=== PATIENT | female | born 1975 | race Caucasian/White ===

== ENCOUNTER 2017-01-13 13:38 | Emergency (ER) | payer OTHER ==
--- NOTE | 2017-01-13 15:57 | ER Document Report ---
ED Extremity Problem, Lower - General Chief Complaint: Knee Pain Stated Complaint: LEFT SIDE PAIN Time Seen by Provider: 01/13/17 15:57 Mode of Arrival: Ambulatory Information source: Patient Notes: 41 yo female with hx MS for 18 years states she is having flare for 3 weeks with the symptoms of weakness to left lower leg, has to consciously think about using the left leg or she will trip and fall. No appliance used. Pt of dr. manoj Diana [facility] Internal Medicine. Patient takes sq Ribif M-W-F at home. TRAVEL OUTSIDE OF THE [place] IN LAST 30 DAYS: No - Related Data Allergies/Adverse Reactions: Sulfa (Sulfonamide Antibiotics) Allergy (Verified 01/13/17 13:47) Past Medical History - General Information source: Patient - Social History Smoking Status: Never Smoker Chew tobacco use (# tins/day): No Frequency of alcohol use: None Drug Abuse: None Lives with: Spouse/Significant other Family History: Reviewed & Not Pertinent Patient has suicidal ideation: No Patient has homicidal ideation: No - Medical History Notes: multiple sclerosis for 18 years - Past Medical History Cardiac Medical History: Reports: Hx Hypertension Renal/ Medical History: Denies: Hx Peritoneal Dialysis Surgical Hx: Negative - Immunizations Hx Diphtheria, Pertussis, Tetanus Vaccination: Yes Review of Systems - Review of Systems Constitutional: No symptoms reported EENT: No symptoms reported Cardiovascular: No symptoms reported Respiratory: No symptoms reported Gastrointestinal: No symptoms reported Genitourinary: No symptoms reported Female Genitourinary: No symptoms reported Musculoskeletal: No symptoms reported Skin: No symptoms reported Hematologic/Lymphatic: No symptoms reported Neurological/Psychological: See HPI Physical Exam - Vital signs Vitals: Temp Pulse Resp BP Pulse Ox 98.3 F 76 18 153/76 H 98 01/13/17 13:45 01/13/17 13:45 01/13/17 13:45 01/13/17 13:45 01/13/17 13:45 Interpretation: Normal - General General appearance: Appears well, Alert - HEENT Head: Normocephalic, Atraumatic Eyes: Normal Pupils: PERRL Neck: Supple - Respiratory Respiratory status: No respiratory distress Chest status: Nontender Breath sounds: Normal Chest palpation: Normal - Cardiovascular Rhythm: Regular Heart sounds: Normal auscultation Murmur: No - Abdominal Inspection: Normal Distension: No distension Bowel sounds: Normal Tenderness: Nontender Organomegaly: No organomegaly - Back Back: Normal, Nontender - Extremities General upper extremity: Normal inspection, Nontender, Normal color, Normal ROM , Normal temperature General lower extremity: Normal inspection, Nontender, Normal color, Normal ROM , Normal temperature, Normal weight bearing. No: Belkis's sign Notes: 5 + strength to grace legs, no foot drop, n/v intact bilateral - Neurological Neuro grossly intact: Yes Cognition: Normal Orientation: AAOx4 Hinton Coma Scale Eye Opening: Spontaneous Hinton Coma Scale Verbal: Oriented Ashly Coma Scale Motor: Obeys Commands Ashly Coma Scale Total: 15 Speech: Normal Motor strength normal: LUE, RUE, LLE, RLE Sensory: Normal - Psychological Associated symptoms: Normal affect, Normal mood - Skin Skin Temperature: Warm Skin Moisture: Dry Skin Color: Normal Skin irregularity: negative: Rash Course - Re-evaluation Re-evalutation: 01/13/17 16:[address] Mayorga [facility] [phone] and he recommends getting an MRI combo of the brain to look for any new active lesions. He also agrees with 1000 mg of Solu-Medrol daily for 3 days. Patient will follow up on Monday. 01/13/17 16:34 01/13/17 20:01 MRI shows some new demyelinization although he was unable to compare it to any previous MRI I will give a copy of this interpretation and a CD to the patient. - Vital Signs Vital signs: Temp Pulse Resp BP Pulse Ox 98.3 F 76 18 153/76 H 98 01/13/17 13:45 01/13/17 13:45 01/13/17 13:45 01/13/17 13:45 01/13/17 13:45 - Laboratory Result Diagrams: 01/13/17 17:30 Laboratory results interpreted by me: 01/13/17 17:30 BUN 6 L Creatinine 0.51 L Discharge - Discharge Clinical Impression: MS exacerbation Condition: Good Disposition: HOME, SELF-CARE Instructions: Neuropathy ([facility]) Additional Instructions: You have been treated for multiple sclerosis exacerbation with 1000 mg of Solu- Medrol today. dr. Mayorga your neurologist says that you can return to the ER this weekend for doses on monday and monday here in the ER, you have been set up as a "Nurse Visit". call dr. Mayorga office monday morning for follow up appt on monday When you come to the ER monday and monday afternoon, tell the front office manager in the waiting room that you are here for a "Nurse Visit" and you don't need to check in as an ER patient. Please complete the patient satisfaction survey if you get one, and return it.. If you do not receive a survey, then you can go to the [facility] website, [email or web address] and place your comments about your very good care. Thank you very much. It was a pleasure being your medical provider today. Forms: Elevated Blood Pressure Referrals: HUGO XIONG MD [Primary Care Provider] - Follow up as needed
[2017-01-13] MEDS ORDERED: METHYLPREDNISOLONE INJ 1000 MG VIAL IV ONE (16:31)
[2017-01-13 18:31] LABS: ANION GAP 6 (5-19); BLOOD UREA NITROGEN 6 mg/dL (7-20); CALCIUM 9.5 mg/dL (8.4-10.2); CARBON DIOXIDE 30 mmol/L (22-30); CHLORIDE 106 mmol/L (98-107); CREATININE RESULT 0.51 mg/dL (0.52-1.25); GLUCOSE 83 mg/dL (75-110); POTASSIUM 4.6 mmol/L (3.6-5.0); SODIUM 141.9 mmol/L (137-145)
--- NOTE | 2017-01-13 19:35 | RADIOLOGY REPORT (SQ) ---
EXAM DESCRIPTION: MRI HEAD COMBO COMPLETED DATE/TIME: 01/13/2017 7:20 pm REASON FOR STUDY: MS ? new lesions COMPARISON: None. TECHNIQUE: Multiplanar imaging includes noncontrasted T1, T2, FLAIR, diffusion with ADC map and post gadolinium contrast T1 sequences. Images stored on PACS. CONTRAST TYPE AND DOSE: 10 mL Multihance. RENAL FUNCTION: GFR > 60. LIMITATIONS: None. FINDINGS: ANATOMY: No anomalies. Normal vascular flow voids. Pituitary fossa normal. CSF SPACES: Normal in size and contour. No hemorrhage. CEREBRUM: Sulci and gyri normal in size and contour. Numerous scattered hyperintense FLAIR foci incl uding involvement of the subcortical and periventricular white matter with a distribution and morphol ogic Cook appearance characteristic of multiple sclerosis consistent with patient's clinical history. Some of the lesions appear to demonstrate at least mild enhancement following contrast administrati on suggestive of active demyelination best seen on series 10, image 16 and series 10, image 19. No ev idence of hemorrhage, mass, or extraaxial fluid collection. POSTERIOR FOSSA: No signal alteration. No hemorrhage. No edema, masses, or mass effect. Internal sheba tory canals, cerebellopontine angles, mastoids normal. No enhancing lesions. No abnormal enhancement post contrast. DIFFUSION IMAGING: Negative for acute or subacute infarction. ORBITS: No masses. Globes normal. PARANASAL SINUSES: No fluid levels. Mucosa normal. OTHER: No other significant finding. IMPRESSION: NUMEROUS WHITE MATTER LESIONS DETAILED ABOVE COMPATIBLE WITH HISTORY OF MULTIPLE SCLE ROSIS. NO PRIOR STUDY AVAILABLE TO ASSESS FOR PROGRESSION OF DISEASE HOWEVER SOME OF THESE LESIONS A PPEAR TO DEMONSTRATE AT LEAST MILD ENHANCEMENT SUGGESTIVE OF ACTIVE DEMYELINATION. EVIDENCE OF ACUTE STROKE: NO. TECHNICAL DOCUMENTATION: JOB ID: [id number]- All Rights Reserved
[2017-01-13 20:42] VITALS: BP 133/66
[2017-01-14] MEDS ORDERED: METHYLPREDNISOLONE SOD SUCC 1,000 MG in DEXTROSE 5%-WATER 100 ML IV PRN (08:00)
== END 2017-01-13 20:41 | disposition home or self-care (01) ==
LOC: ER 13:38
DX: G35 Multiple sclerosis (principal); I10 Essential (primary) hypertension; Z79.899 Other long term (current) drug therapy; Z88.2 Allergy status to sulfonamides
CPT/HCPCS: 99284; 36415; 80048; 70553; A9577; J2930

== ENCOUNTER 2017-09-30 17:47 | Emergency (ER) | payer OTHER ==
--- NOTE | 2017-09-30 19:03 | RADIOLOGY REPORT (SQ) ---
EXAM DESCRIPTION: KNEE LEFT 4 VIEW COMPLETED DATE/TIME: 09/30/2017 6:46 pm REASON FOR STUDY: knee injury, pain and swelling COMPARISON: None. NUMBER OF VIEWS: Four views. TECHNIQUE: AP, lateral, and both oblique radiographic images acquired of the left knee. LIMITATIONS: None. FINDINGS: MINERALIZATION: Normal. BONES: A comminuted fracture is seen of the patella. JOINT: Large joint effusion. SOFT TISSUES: No soft tissue swelling. No radio-opaque foreign body. OTHER: No other significant finding. IMPRESSION: Comminuted fracture of the patella with effusion representing probable hemarthrosis. TECHNICAL DOCUMENTATION: JOB ID: [id number] [id number]- All Rights Reserved Reading location - IP/workstation name: [email or web address]
[2017-09-30] MEDS ORDERED: OXYCODONE-ACETAMINOPHEN 5-325 MG TABLET PO ONE (19:13)
--- NOTE | 2017-09-30 19:13 | ER Document Report ---
ED Extremity Problem, Lower - General Chief Complaint: Knee Pain Stated Complaint: FALL/LEFT KNEE PAIN, SWELLING Time Seen by Provider: 09/30/17 18:13 Mode of Arrival: Ambulatory Information source: Patient Notes: Patient is a 42-year-old female who presents to the ER today for left knee pain and swelling after tripping with her 4-year-old child in a parking lot prior to arrival, falling directly onto the left knee on the parking lot concrete. Patient admits to immediate pain, worse with walking. She denies any numbness or tingling or popping, weakness to the knee. She did not hit her head or lose consciousness. She admits to a small abrasion to the left knee. She denies any pain anywhere else. TRAVEL OUTSIDE OF THE [place] IN LAST 30 DAYS: No - Related Data Allergies/Adverse Reactions: Sulfa (Sulfonamide Antibiotics) Allergy (Verified 01/13/17 13:47) Past Medical History - General Information source: Patient - Social History Smoking Status: Never Smoker Chew tobacco use (# tins/day): No Frequency of alcohol use: None Drug Abuse: None Family History: Reviewed & Not Pertinent Patient has suicidal ideation: No Patient has homicidal ideation: No - Past Medical History Cardiac Medical History: Reports: Hx Hypertension Renal/ Medical History: Denies: Hx Peritoneal Dialysis - Immunizations Hx Diphtheria, Pertussis, Tetanus Vaccination: Yes Review of Systems - Review of Systems Constitutional: No symptoms reported EENT: No symptoms reported Cardiovascular: No symptoms reported Respiratory: No symptoms reported Gastrointestinal: No symptoms reported Genitourinary: No symptoms reported Female Genitourinary: No symptoms reported Musculoskeletal: See HPI Skin: See HPI Hematologic/Lymphatic: No symptoms reported Neurological/Psychological: No symptoms reported Physical Exam - Vital signs Vitals: Temp Pulse Resp BP Pulse Ox 98.7 F 88 16 148/85 H 99 09/30/17 17:53 09/30/17 17:53 09/30/17 17:53 09/30/17 17:53 09/30/17 17:53 - Notes Notes: PHYSICAL EXAMINATION: GENERAL: Uncomfortable appearing, but in no acute distress. HEAD: Atraumatic, normocephalic. EYES: Pupils equal round and reactive to light, extraocular movements intact, sclera anicteric, conjunctiva are normal. NECK: Normal range of motion, supple without lymphadenopathy LUNGS: CTAB and equal. No wheezes rales or rhonchi. HEART: Regular rate and rhythm without murmurs BACK: no vertebral tenderness, normal ROM GI/: no CVA tenderness EXTREMITIES: Decreased range of motion secondary to pain with flexion and extension of the left knee, tender directly over left patella, obvious swelling/ effusion to the left knee superior, medial and lateral to the patella, no pitting edema. No cyanosis. NEUROLOGICAL: Cranial nerves grossly intact. Normal sensory/motor exams. PSYCH: Normal mood, normal affect. SKIN: Warm, Dry, normal turgor, small abrasion, nonbleeding, to the left leg just inferior to the patella Course - Re-evaluation Re-evalutation: 10/01/17 01:24 Patient has a comminuted fracture of the left patella, x-ray reveals no other acute pathology. Patient will be placed in knee immobilizer brace, sent home with pain medication and given orthopedic information to follow-up with. I did consult with Dr. Biggs, orthopedic on-call who agrees with the plan. - Vital Signs Vital signs: Temp Pulse Resp BP Pulse Ox 98.7 F 67 20 160/74 H 100 09/30/17 17:53 09/30/17 19:39 09/30/17 19:39 09/30/17 19:39 09/30/17 19:39 Discharge - Discharge Clinical Impression: Patella fracture Qualifiers: Encounter type: initial encounter Fracture type: closed Fracture morphology: comminuted Fracture alignment: nondisplaced Laterality: left Qualified Code(s): S82.045A - Nondisplaced comminuted fracture of left patella, initial encounter for closed fracture Condition: Stable Disposition: HOME, SELF-CARE Instructions: Use of Crutches ([facility]), Ice & Elevation ([facility]), Knee Immobilizing Splint ([facility]) Additional Instructions: Return immediately for any new or worsening symptoms. Follow up with primary care provider, call tomorrow to make followup appointment. Prescriptions: Oxycodone HCl/Acetaminophen [Percocet 5-325 mg Tablet] 1 - 2 tab PO Q4H PRN #25 tablet PRN Reason: Referrals: HUGO XIONG MD [Primary Care Provider] - Follow up as needed LALO JAIME MD [ACTIVE STAFF] - Follow up as needed
[2017-09-30 19:42] VITALS: BP 160/74
== END 2017-09-30 19:47 | disposition home or self-care (01) ==
LOC: ER 17:47
DX: S82.045A Nondisplaced comminuted fracture of left patella, initial encounter for closed fracture (principal); W01.0XXA Fall on same level from slipping, tripping and stumbling without subsequent striking against object, initial encounter; Y92.481 Parking lot as the place of occurrence of the external cause; I10 Essential (primary) hypertension; Z88.2 Allergy status to sulfonamides
CPT/HCPCS: 99283; 73564; L1830

== ENCOUNTER 2018-02-26 06:39 | Day surgery (SDC) | payer OTHER ==
[2018-02-22 10:14] LABS: APPEARANCE,URINE CLOUDY; BILIRUBIN,URINE NEGATIVE (NEGATIVE); COLOR,URINE STRAW; GLUCOSE, URINE NEGATIVE (NEGATIVE); KETONES,URINE NEGATIVE (NEGATIVE); LEUKOCYTE ESTERASE,URINE NEGATIVE (NEGATIVE); NITRITE,URINE NEGATIVE (NEGATIVE); PROTEIN,URINE 100 mg/dL (NEGATIVE); URINE SPECIFIC GRAVITY 1.011; UROBILINOGEN,URINE NEGATIVE mg/dL (<2.0)
[2018-02-22 10:31] LABS: RED BLOOD COUNT 4.26 10^6/uL (3.72-5.28); WHITE BLOOD COUNT 4.6 10^3/uL (4.0-10.5)
[2018-02-22 10:32] LABS: HEMATOCRIT 37.6 % (36.0-47.0); MEAN CORPUSCULAR HEMOGLOBIN 30.5 pg (27.0-33.4); MEAN CORPUSCULAR HGB CONC 34.5 g/dL (32.0-36.0); MEAN CORPUSCULAR VOLUME 88 fl (80-97); PLATELET COUNT 262 10^3/uL (150-450); RED CELL DISTRIBUTION WIDTH 12.6 % (11.5-14.0)
[2018-02-22 10:40] LABS: ALANINE AMINOTRANSFERASE 35 U/L (9-52); ALBUMIN 3.9 g/dL (3.5-5.0); ALKALINE PHOSPHATASE 82 U/L (38-126); ANION GAP 11 (5-19); ASPARTATE AMINO TRANSFERASE 37 U/L (14-36); BILIRUBIN,DIRECT 0.1 mg/dL (0.0-0.4); BILIRUBIN,TOTAL 0.4 mg/dL (0.2-1.3); BLOOD UREA NITROGEN 10 mg/dL (7-20); CARBON DIOXIDE 26 mmol/L (22-30); CHLORIDE 105 mmol/L (98-107); GLUCOSE 81 mg/dL (75-110); POTASSIUM 5.1 mmol/L (3.6-5.0); SODIUM 142.3 mmol/L (137-145); TOTAL PROTEIN 6.6 g/dL (6.3-8.2)
[~2018-02-26 06:39] MED LIST: CEFAZOLIN 1 GM/D5W RTU 1 GM/50 ML RTUPB IV PRN; LACTATED RINGERS 1000 ML IV PRN; LIDOCAINE 0.5% INJ-PF (5 MG/ML) 50 ML SDV SUBCUT PRN
[2018-02-26] MEDS ORDERED: CEFAZOLIN 1 GM/D5W RTU 1 GM/50 ML RTUPB IV ONE (06:45)
[2018-02-26] MEDS ORDERED: LIDOCAINE 1%/EPINEPHRINE INJ 20 ML VIAL ONE (06:52)
[2018-02-26] MEDS ORDERED: FENTANYL CITRATE INJ/PF 100 MCG/2 ML AMPUL ONE (08:26)
[2018-02-26] MEDS ORDERED: MIDAZOLAM 2 MG/2 ML INJ ONE (08:27)
[2018-02-26] MEDS ORDERED: PROPOFOL INJ 200 MG/20 ML VIAL IV ONE (08:27)
[2018-02-26] MEDS ORDERED: DEXAMETHASONE SOD PHOSPHATE INJ 4 MG/1 ML VIAL ONE (08:28)
[2018-02-26] MEDS ORDERED: ONDANSETRON HCL INJ/PF 4 MG/2 ML SDV ONE (08:28)
[2018-02-26] MEDS ORDERED: DIPHENHYDRAMINE HCL 50 MG/ML VIAL IV PRN (09:01)
[2018-02-26] MEDS ORDERED: MORPHINE SULFATE 10 MG/ML INJ IV PRN (09:01)
[2018-02-26] MEDS ORDERED: MEPERIDINE HCL/PF INJ 25 MG/1 ML DISP.SYRIN IV PRN (09:01)
[2018-02-26] MEDS ORDERED: PROMETHAZINE HCL INJ 25 MG/1 ML VIAL IV PRN ×3 (09:01→10:36)
[2018-02-26] MEDS ORDERED: FENTANYL CITRATE INJ/PF 100 MCG/2 ML AMPUL IV PRN ×3 (09:01)
[2018-02-26] MEDS ORDERED: KETOROLAC TROMETHAMINE INJ/PF 30 MG/1 ML SDV ONE (09:57)
[2018-02-26] MEDS ORDERED: OXYCODONE-ACETAMINOPHEN 5-325 MG TABLET ONE (10:21)
--- NOTE | 2018-02-26 10:33 | EKG REPORT ---
SEVERITY:- NORMAL ECG - SINUS RHYTHM : Confirmed by: Tello Lewis 26-Feb-2018 10:33:01
[2018-02-26] MEDS ORDERED: OXYCODONE-ACETAMINOPHEN 5-325 MG TABLET PO PRN ×2 (10:35)
[2018-02-26 11:24] VITALS: BP 154/89
--- NOTE | 2018-02-26 12:17 | OPERATIVE REPORT E ---
Operative Report NAME: AMAURY MCGARRY : 1975 AGE: 43Y DATE OF SURGERY: 02/26/2018 ROOM: OPERATION: Cold knife cervical conization with endometrial endocervical curettings. SURGEON: HUGO XIONG M.D. ANESTHESIA: General. ESTIMATED BLOOD LOSS: Negligible. PERTINENT HISTORY AND OPERATIVE FINDINGS: This is a 43-year-old female who was found to have an abnormal Pap smear, JASMYN 1, ultimately underwent a LEEP procedure; however, in followup the JASMYN 1 was still there. We discussed risks and benefits, various approaches, and she opted to proceed with a cold knife biopsy of the cervix as well as a D and C and cervical curettings. She is aware of the risks and benefits. At the time of surgery the vagina appeared to be normal. The vulva appeared to be normal. Cervix was grossly normal. Uterus was midplane and not enlarged. Adnexa were negative. OPERATIVE PROCEDURE: Patient was brought into the OR, placed on the table in a supine position, and inducted under general anesthesia. She was then repositioned in a dorsal lithotomy position, prepped, and draped in a sterile fashion. The bladder was emptied of 100 mL of clear yellow urine. A pelvic under anesthesia was done with the above findings. A weighted speculum was inserted. The cervix was grasped on its two lateral aspects with a single-tooth tenaculum. We then injected 0.5 mL of 1% Xylocaine with epinephrine at 12 o'clock, 2 o'clock, 4 o'clock, 6 o'clock, 8 o'clock, and 10 o'clock. Blanching was complete. With this in mind a #11 Bard Wm blade was used to circumferentially outline the cervical cone. This was completed with curved Vega scissors. This removed the specimen. Uterus was sounded to 8 cm. It was dilated and curetted with a small sharp curette. The endocervix was also curetted with a small sharp curette. Having accomplished this, lateral sutures were put in using #1 chromic. Sturmdorf sutures were put in anteriorly and posteriorly. These were then tied. The specimen was sent to pathology for further evaluation. We did put Surgicel up inside the cervix to maintain hemostasis. This terminated the procedure. Anesthesia was discontinued. The patient was placed back in the supine position, and she was transferred to the recovery room in satisfactory condition. Once again, negligible blood loss. DICTATING PHYSICIAN: HUGO XIONG M.D. [id number] PHY#: [id number] ID: [id number] JOB#: [id number] ACCT: [id number] cc:HUGO XIONG M.D. >
== END 2018-02-26 11:33 | disposition home or self-care (01) ==
LOC: OROUT 06:39
PROVIDERS: ATTEND Obstetrics & Gynecology
DX: N87.0 Mild cervical dysplasia (principal); E03.9 Hypothyroidism, unspecified; G35 Multiple sclerosis; Z88.2 Allergy status to sulfonamides; Z79.899 Other long term (current) drug therapy; Z79.82 Long term (current) use of aspirin; Z79.3 Long term (current) use of hormonal contraceptives
CPT/HCPCS: 36415 ×2; 84132; 85027; 81025; 80053; 81001; 88305 ×2; 88307 ×2; 93005; 93010; 57520; J2250; J0690; J1100; J3010; J3490; J1885; J2405; J2704; 84484; 940